=== PATIENT | female | born 1935 | race Caucasian/White ===

== ENCOUNTER 2024-10-10 18:23 | Emergency (ER) | payer OTHER, SELFPAY ==
[2024-10-10] VITALS (22 sets, daily range): BP systolic 153–216; BP diastolic 71–92; PULSE 52–77; RESP 8–34; TEMP 37.1; O2SAT 91–95; BMI 30.2
--- OUTSIDE RECORDS SUMMARY | 2024-10-10 18:25 | XMS_ITS | Clinical Summary ---
Author Organization [facility] Address [address] [place] [id number] Care Team Providers Care Cable Braider Name Role Phone Deysi Fuentes Ki Unavailable [phone] Ana Jones MD Primary Care Provider Allergies Active Allergy Reactions Criticality Noted Date Comments Lisinopril Angioedema 02/13/2013 Medications acetaminophen (TYLENOL EXTRA STRGTH) 500 mg tablet Take 500 mg by mouth. 5 Active Diabetic ShoeIndications: Diabetes mellitus without complication (HC) As directed. 1 Units 0 Active Lancing Device miscIndications: Diabetes mellitus without complication (HC) As directed. 1 Each 2 Active miscellaneous medical supply (Blood Pressure Cuff) miscIndications: HTN (hypertension) As directed. BP cuff for home use. Length of need 99 1 Each 2 Active Blood Pressure Monitor KitIndications:H TN (hypertension) As directed. BP cuff for home use. Length of need 99 1 Each 3 Active torsemide (DEMADEX) 20 mg tabletIndication s:CKD (chronic kidney disease) stage 4, GFR 15-29 ml/min (HC),Localized edema TAKE 1 TABLET DAILY 90 Tablet 3 3 Active torsemide (DEMADEX) 10 mg tabletIndication s:Localized edema due to fluid overload,Hyperka lemia Take 1 Tablet (10 mg) by mouth once daily. Take with 20mg tablet for total of 30mg per day 90 Tablet 3 3 Active carvediloL (Coreg) 6.25 mg tabletIndication s:HTN (hypertension) Take 1 Tablet (6.25 mg) by mouth two times daily with meals. 180 Tablet 3 3 Active calcitrioL (ROCALTROL) 0.25 mcg capsuleIndicatio ns:CKD (chronic kidney disease) stage 4, GFR 15-29 ml/min (HC) TAKE 1 CAPSULE BY MOUTH ONCE DAILY 90 Capsule 3 4 Active gabapentin (NEURONTIN) 100 mg capsuleIndicatio ns:Diabetic peripheral neuropathy (HC) TAKE 3 CAPSULES BY MOUTH ONCE DAILY SEPARATE FROM ANTACIDS 270 Capsule 3 4 Active sAXagliptin (ONGLYZA) 2.5 mg tabletIndication s:Diabetes mellitus without complication (HC) Take 1 Tablet (2.5 mg) by mouth once daily. 90 Tablet 3 4 Active blood sugar diagnostic (Accu-Chek Sylvia Plus test strp) stripIndications :Diabetes mellitus without complication (HC) TEST 1-2 times/day due to fluctuating blood sugars. 150 Each 3 4 Active lancets (Unilet GP Lancet)Indicatio ns:Diabetes mellitus without complication (HC) Dispense item covered by pt ins. 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 90 Tablet 3 4 Active losartan (COZAAR) 100 mg tabletIndication s:HTN (hypertension) TAKE 1 TABLET BY MOUTH ONCE DAILY 90 Tablet 5 Active glipiZIDE (GLUCOTROL) 5 mg tabletIndication s:Diabetes mellitus without complication (HC) TAKE 2 TABLETS BY MOUTH WITH BREAKFAST AND 1 TABLET BY MOUTH WITH DINNER 1/2 HOUR BEFORE MEALS 270 Tablet 5 Active Active Problems Problem Noted Date Diagnosed Date Chronic diastolic heart failure 09/13/2023 Chronic metabolic acidosis 09/13/2023 Acute pain of left shoulder 07/22/2023 Overview (02/27/2024): July 2023: Left shoulder subacromial bursa steroid injection, significant relief for 3-4 months. Feb 2024: Repeat Left shoulder subacromial bursa steroid injection. Hyperkalemia 03/01/2023 Type 2 diabetes mellitus with diabetic nephropat hy 03/01/2023 Basal cell carcinoma (BCC) of skin of nose 03/09 Diabetic peripheral neuropathy 09/07/2021 Secondary renal hyperparathyroidism 10/24/2018 CKD (chronic kidney disease) stage 5, GFR less than 15 ml/min 10/24/2018 MGUS (monoclonal gammopathy of unknown significa nce) 07/24/2018 Bilateral lower extremity edema 01/08/2018 Angioedema 08/12/2013 Meningioma 06/19/2013 Sensorineural hearing loss, bilateral 01/15/2013 HTN (hypertension) 08/12/2010 CAD (coronary artery disease) 08/12/2010 Overview (08/12/2010): Non-obstructive based on angiogram of 2004. Medical therapy recommended. Osteopenia 08/12/2010 Overview (08/12/2010): Last DEXA scan 02/23. 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 CKD (chronic kidney disease) stage 3, GFR 30-59 ml/min 08/12/2010 10/24/2018 Tobacco abuse, episodic 08/12/201001/17 Encounters Date Type Department Care Team Description 10/09/2024 Nurse Triage [facility] [address] [place] [address] Ana Jones MD Concerns (CHEST PAIN ) 10/02/2024 Refill [facility] [address] [place] [address] Ana Jones MD Refill Request (Simvastatin) 09/30/2024 10:15 AM CDT [place] [facility] [id number] [place] [address] Lab, [facility] 09/30/2024 Travel 09/12/2024 Telephone [facility] [address] [place] [address] Ana Jones MD Error-please disregard 08/15/2024 Refill [facility] [address] [place] [address] Cristhian Snow MD Refill Request (Calcitriol) 08/15/2024 Refill [facility] [address] [place] [address] Ana Jones MD Refill Request (Losartan, Glipizide) 08/14/2024 Refill [facility] [address] [place] [address] Cristhian Snow MD Refill Request (Gabapentin) 08/13/2024 10:00 AM ADMISSIONS ASSISTANT [place] [facility] [id number] [address] [address] Lab, [facility] 08/13/2024 Travel 07/14/2024 10:00 AM ADMISSIONS ASSISTANT [place] [facility] [id number] [address] [place] [address] Lab, [facility] 07/14/2024 Travel from Last 3 Months Immunizations Immunization Administration Dates Next Due COVID-19 vaccine ([employer] 30mcg/0.3mL) ELDA TORRES 08/21/2020,07/31/2020 Influenza, High-dose Inactivated 04/27/2017 Influenza, Inactivated AIIV4 (Age 65+ Years) Preserv Free 03/03/2020 Influenza, Inactivated IIV3 (Age 65+ Years) Preserv Free 05/07/2024 Pneumococcal Poly,23-Valent (Pneumovax) 08/02/19 10 Td (Age >=7 Years) 01/06/1997 Td, Preservative Free (age >= 7 Years) 7 02/04/2017 Family History Medical History Relation Name Comments Cancer-breast Maternal Aunt Relation Name Status Comments Father (Age 83) [place] Maternal Aunt Mother (Age 85) colon canc er Social History Tobacco Use Types Packs/Day Years Used Date Smoking Tobacco: Never Smokeless Tobacco: Never Tobacco Cessation:Counseling Given: Yes Alcohol Use Standard Drinks/Week Comments No 0 (1 standard drink = 0.6 oz pur e alcohol) PHQ-2 Answer Date Recorded PHQ-2 Score 0 08/17/2018 Social Connections Answer Date Recorded Do you often feel lonely or isolated from those around you? 0 10/12/2023 Financial Resource Strain Answer Date R ecorded Difficulty of Paying Living Expenses 3 10/12/2023 Difficulty of Paying Living Expenses Not on file 10/12/2023 Food Insecurity Answer Date Recorded Do you worry your food will run out before you are able to buy more? 1 10/12/2023 Transportation Needs Answer Date Record ed Does lack of transportation keep you from medica l appointments? 1 10/12/2023 Does lack of transportation keep you from work, meetings or getting things that you need? 1 10/12/2023 Housing Stability Answer Date Recorded What is your housing situation today? 1 10/12/2023 Utilities Answer Date Recorded Do you have trouble paying f or utilities (for example, heat, electricity, water, phone)? 1 10/12/2023 Comments No Sex and Gender Information Value Date Recorded Sex Assigned at Not on file Legal Sex Female 5:25 AM ADMISSIONS ASSISTANT Gender Identity Not on file Sexual Orientation Not on file 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, dealership general manager Not on file N ot on file Not on file Obstetrics History Last Filed Vital Signs Vital Sign Reading Time Taken Comments Blood Pressure 150/76 05/07/2024 9:47 AM ADMISSIONS ASSISTANT Pulse 64 05/07/2024 9:47 AM ADMISSIONS ASSISTANT Temperature 36.7 C (98.1 F) 11/30/2020 3:53 PM CDT Respiratory Rate 16 03/15/2013 7:46 AM CDT Oxygen Saturation 96% 05/07/2024 9:47 AM ADMISSIONS ASSISTANT Inhaled Oxygen Concentration - - Weight 75.1 kg (165 lb 9.6 oz) 05/07/2024 9:47 A M ADMISSIONS ASSISTANT Height 156.2 cm (5' 1.5) 05/07/2024 9:47 AM ADMISSIONS ASSISTANT Body Mass Index 30.78 05/07/2024 9:47 AM ADMISSIONS ASSISTANT Plan of Treatment Health Maintenance Due Date Last Done Comments Tdap 1946 Zoster (shingles) series for age 50+ (1 of 2) 1987 Pneumococcal series for age 50+ (2 of 2 - PCV) 08/02/2010 08/02/2009 RSV vaccine for adults or (1 - 1-dose 75+ series) 2012 Tetanus booster 02/04/2017 02/04/2007, 01/06/1997 Depression screening for age 12+ 02/08/2019 02/08/2018, 02/05/2018, 01/23/2017, Additional history exists Medicare Wellness for age 65+ 09/09/2021 09/08/2020 COVID-19 vaccine series ( season) 2024 05/02/2021, 08/21/2020, 07/31/2020 BMI (ht and wt on same day) for age 18+ 05/07/2025 05/07/2024, 07/20/2023, 03/01/2023, Additional history exists DEXA/DXA scan for age 65+ Completed 2007 (Completed outside of [facility]), 02/27/2008 Influenza Vaccine Completed 05/07/2024, , 04/27/2017 Procedures Procedure Name Priority Date/Time Associated Diagnosis Comments RENAL FUNCTION PANEL Routine 08/13/2024 10:02 AM ADMISSIONS ASSISTANT CKD (chronic kidney disease) stage 5, GFR less than 15 ml/min (HC) HEMOGLOBIN Routine 08/13/2024 10:01 AM ADMISSIONS ASSISTANT Chronic kidney disease, stage V (HC) XR DXA BONE DENSITY 2 SITES AXIAL Routine 02/27/2008 10:35 AM CDT Special Screening for Osteoporosis from Last 3 Months or Most Recently Relevant to Health Maintenance Results * (ABNORMAL) RENAL FUNCTION PANEL (08/13/2024 10:02 AM ADMISSIONS ASSISTANT) GLUCOSE 157(H) 65 - 99 mg/dL [facility] Comment: Fasting reference interval For someone without known diabetes, a glucose value >125 mg/dL indicates that they may have diabetes and this should be confirmed with a follow-up test. UREA NITROGEN (BUN) 82(H) 7 - 25 mg/dL [facility] CREATININE 4.71(H) 0.60 - 0.95 mg/dL [facility] EGFR 8(L) > OR = 60 mL/min/1.7 3m2 [facility] BUN/CREATININE RATIO 17 6 - 22 (calc) [facility] SODIUM 136 135 - 146 mmol/L [facility] POTASSIUM 5.2 3.5 - 5.3 mmol/L [facility] CHLORIDE 105 98 - 110 mmol/L [facility] CARBON DIOXIDE 21 20 - 32 mmol/L [facility] CALCIUM 9.8 8.6 - 10.4 mg/dL [facility] PHOSPHATE ( PHOSPHORUS) 6.7(H) 2.1 - 4.3 mg/dL [facility] ALBUMIN 3.8 3.6 - 5.1 g/dL [facility] Blood BLOOD SPECIMEN / Unknown 08/13/2024 10:02 AM ADMISSIONS ASSISTANT 08/13/2024 10:02 AM ADMISSIONS ASSISTANT us Cristhian Snow MD CHEMISTRY Final R esult [facility] [address] [place] [address], [facility] [address] [place] [address] * (ABNORMAL) HEMOGLOBIN (08/13/2024 10:01 AM ADMISSIONS ASSISTANT) HEMOGLOBIN 9.9(L) 11.7 - 15.5 g/dL [facility] Blood BLOOD SPECIMEN / Unknown 08/13/2024 10:01 AM ADMISSIONS ASSISTANT 08/13/2024 10:01 AM ADMISSIONS ASSISTANT Ana Jones MD HEMATOLOGY Final R esult [facility] [address] [place] [address], [facility] [address] [place] [address] * XR DEXA BONE DENSITY 2 SITES (02/27/2008 10:35 AM CDT) Anatomical Region Laterality Modality Spine, HIPS, HIPL, HIPR Other 02/27/2008 10:3 5 AM CDT Narrative 03/03/2008 2:18 PM CDT Please see scanned document for results of this study. Procedure Note Jessica Brandt PA - 03/10/2008 Please see scanned document for results of this study. Katie Conrad DO DEXA Final Resu lt from Last 3 Months or Most Recently Relevant to Health Maintenance Insurance MEDICARE PART A HB ONLY MEDICARE PART B HB ONLY [facility] MR Advance Directives * Full Code (Latest Code Status on File) Date Activated Date Inactivated Comments 03/15/2013 1:09 AM 03/15/2013 1:36 PM Care Teams Cable Braider Relationship Specialty Start Date End Date Ana Jones MD [address] [place] [address] PCP - General Family Practice 09/14/17 Deysi Fuentes AuD Audiology 01/15/13
--- OUTSIDE RECORDS SUMMARY | 2024-10-10 18:25 | XMS_ITS | Clinical Summary ---
Author Organization [facility] Address [address] [address] Phone Care Team Providers Care Casting Operator Name Role Phone Elsewhere, Pcp Primary Care Provider Unavailabl e Allergies No known active allergies Medications isosorbide dinitrate (ISORDIL) 10 MG tablet Take 10 mg by mouth three times a day. Active simvastatin (ZOCOR) 40 MG tablet Take 40 mg by mouth with supper. Active metFORMIN (GLUCOPHAGE) 1000 MG tablet Take 1,000 mg by mouth two times a day with meals. Take with food. Active metoprolol tartrate (LOPRESSOR) 50 MG tablet Take 50 mg by mouth two times a day. Active EPINEPHrine, auto-injector, 0.3 MG/0.3ML injection Inject 0.3 mL into the muscle one time as needed for Anaphylaxis for 1 dose. 2 Each 0 3 Active diphenhydrAMINE (BENADRYL) 25 MG capsule Take 2 Caps by mouth every six hours as needed for Other (Swelling). 24 Cap 0 3 Active Surgical History Surgery Date Site/Laterality Comments BACK SURGERY Medical History Medical History Date Comments Type 2 diabetes mellitus (HCC) Essential hypertension, benign Dyslipidemia Social History Tobacco Use Types Packs/Day Years Used Date Smoking Tobacco: Former Alcohol Use Standard Drinks/Week Comments Yes 0 (1 standard drink = 0.6 oz pur e alcohol) Comments Unknown Sex and Gender Information Value Date Recorded Sex Assigned at Not on file Legal Sex Female 8:44 AM CDT Gender Identity Not on file Sexual Orientation Not on file Obstetrics History Last Filed Vital Signs Vital Sign Reading Time Taken Comments Blood Pressure 144/80 02/11/2013 12:10 PM CDT Pulse 70 02/11/2013 12:10 PM CDT Temperature 36.9 C (98.4 F) 02/11/2013 8:51 AM CDT Respiratory Rate 20 02/11/2013 12:10 PM CDT Oxygen Saturation 95% 02/11/2013 12:10 PM CDT Inhaled Oxygen Concentration - - Weight 73.5 kg (162 lb) 02/11/2013 8:51 AM CDT Height 160 cm (5' 3) 02/11/2013 8:51 AM CDT Body Mass Index 28.7 02/11/2013 8:51 AM CDT Plan of Treatment Health Maintenance Due Date Last Done Comments PERTUSSIS (Standing Order) 1954 TETANUS (Standing Order) 1954 Pneumococcal Vaccine: 50+ yr s (Standing Order) (1 of 1 - PCV) 1987 Shingrix (Zoster recombinant ) vaccine (Standing Order) (1 of 2) 1987 DXA,FEMALES AGE 65 OR GREATER 2002 RSV Vaccination (60+ yrs) (Abrysvo/Arexvy) (1 - 1-dose 75+ series) 2012 COVID-19 Vaccine (2023-2 5 season) 2024 08/21/2020, 07/31/2020 Influenza Vaccine Seasonal (Standing Order) (#1) 2024 HPV Vaccine (Standing Order) Aged Out No longer eligible based on patient's age to complete this topic Hepatitis B Vaccine (Standin g Order) Aged Out No longer eligible b ased on patient's age to complete this topic Insurance [employer] [place] [id number] MEDICARE COST PART A&B Care Teams Casting Operator Relationship Specialty Start Date End Date Elsewhere, Pcp PCP - General 02/11/13
--- NOTE | 2024-10-10 19:07 | CRLHL7_ITS ---
For Patients: As a result of the Cures Act, medical imaging exams and procedure reports are released immediately into your electronic medical record. You may view this report before your referring provider. If you have questions, please contact your health care provider. INDICATION: Chest pain TECHNIQUE: Chest radiograph 2 views COMPARISON: 08/01/2016 FINDINGS: Mediastinum: There is a new right paratracheal density causing leftward deviation of the trachea which may be due to a goiter. Mild cardiomegaly is noted. Lung: Linear densities are present in the mid left lung and both lung bases which may be due to atelectasis and/or linear scarring. No sign of pleural effusion seen. No pneumothorax is identified. Bone and Soft tissue: A right reverse shoulder arthroplasty is partially visualized. IMPRESSIONS: 1. Linear densities are present in the mid left lung and both lung bases which may be due to atelectasis and/or linear scarring. 2. Mild cardiomegaly is noted. 3. There is a new right paratracheal density causing leftward deviation of the trachea which may be due to a goiter. Correlation with physical exam is recommended. Dictated by Sid Lozano MD @ 10/10/2024 7:46:37 PM Dictated by: Sid Lozano MD @ 10/10/2024 19:46:40 (Electronically Signed)
[2024-10-10 19:25] LABS: Basophils Absolute Auto 0.06 K/uL (0.00-0.30); Basophils Percent Auto 0.8 % (0.0-3.0); Eosinophils Absolute Auto 0.44 K/uL (0.00-0.50); Eosinophils Percent Auto 5.6 % (0.0-7.0); Hemoglobin* 10.2 gm/dL (12.0-16.0); Immature Granulocytes Abs Auto 0.12 K/uL (0.00-0.30); Immature Granulocytes Pct Auto 1.5 %; Lymphocytes Percent Auto 10.9 % (20-44); Mean Corpuscular HGB Conc 32 gm/dL (32-36); Mean Corpuscular Hemoglobin 29 pg (26-34); Mean Corpuscular Volume 92 fL (80-100); Neutrophils Percent Auto 73.2 % (42.0-72.0); Platelet Count* 275 K/uL (140-440); RDW Coefficient of Variation % 13.8 % (11.5-15.5); Red Blood Count 3.49 m/uL (4.00-5.20); White Blood Count* 7.87 K/uL (4.50-11.00)
[2024-10-10 19:27] LABS: Slide Review Reflex No; Troponin, Point-of-Care* 0.02 ng/ml (0.01-0.04)
--- NOTE | 2024-10-10 19:29 | ED.CHESTPAIN ---
HPI - Chest Pain General Date Seen: 10/10/24 Chief Complaint: Chest Pain Stated Complaint: Chest pain, hard to breath when walking Time Seen by Provider: 10/10/24 18:44 Source: patient Mode of arrival: ambulatory Limitations: no limitations History of Present Illness HPI narrative: Patient is an 89-year-old female with a history of nodular basal cell carcinoma, end-stage renal disease not on dialysis presenting to the emergency department for chest pain. She states the past week whenever she will get up and walk around she will get chest pain. Describes as a dull ache in her mid lower chest. Does seem to radiate sometimes to her left upper chest. Symptoms occur just from walking to her kitchen and back. They typically go away when she sits down. They occur does but every time she gets up and moves around. She thinks she gets some mild relief with rolaids but cannot say for certain could she always also sits down after she takes the rolaids. Has never had symptoms like this before she states. Does get some associated shortness of breath with it. Does not get lightheaded or dizzy. States she was checking blood pressure at home a couple times since typically in the 150s systolic over 80s diastolic. Does states she is very anxious right now because she is concerned it could be her heart. Does states she has some very mild pain right now does not feel like the previous pain. She thinks it is because she is anxious. She does have end-stage renal disease and was offered dialysis a couple years ago but declined as she preferred quality of life. No other concerns noted. Related Data Previous Rx's ?Medication ?Instructions ?Recorded isosorbide mononitrate 60 mg 60 mg PO DAILY #30 tabs 10/10/24 tablet,extended release 24 hr nitroglycerin 0.4 mg sublingual 0.4 mg sublingual Q5-15M PRN chest 10/10/24 tablet pain #30 tabs Allergies Allergy/AdvReac Type Severity Reaction Status Date / Time lisinopril Allergy Severe Mouth, Verified 10/10/24 18:37 throat swollen Review of Systems Status of ROS Reports: 10 or more systems reviewed and unremarkable except as noted in History and below [facility] Medical History Nodular basal cell carcinoma ?C44.91 - Basal cell carcinoma of skin, unspecified (ICD-10) Encounter for preoperative screening laboratory testing for severe acute respiratory syndrome coronavirus 2 (SARS-CoV-2) ?Z01.812 - Encounter for preprocedural laboratory examination (ICD-10) ?Z20.822 - Contact with and (suspected) exposure to covid-19 (ICD-10) Social History Smoking Status: Never smoker service: No Exam Narrative Exam Narrative: Const: Well-nourished, Well-developed, in no distress Eyes: PERRL, no conjunctival injection, and symmetrical lids HENT: Atraumatic external nose and ears. Moist mucous membranes. Neck: Symmetric, trachea midline, No thyromegaly. CVS: RRR, No murmurs or gallops. Peripheral pulses 2+ and equal in all extremities RESP: Unlabored respiratory effort. Clear to auscultation bilaterally. GI: Nontender/Nondistended, No rebound or guarding. MSK:Extremities w/o deformity, Normal Active ROM Skin: Warm, Dry. No rashes or lesions. Neuro: Normal Muscle tone, No focal neurological deficits. Psych: Awake, Alert, & Oriented x3. Appropriate mood and affect. Const Vital Signs, click to edit/add: Vital Signs - 24 hr 10/10/24 18:37 10/10/24 18:55 10/10/24 18:59 Temperature 98.8 F Pulse Rate Pulse Rate [Pulse Oximeter] 77 Respiratory Rate 18 8 L 17 Blood Pressure 216/87 H Blood Pressure [Right Upper Arm] 211/77 H Pulse Oximetry 95 Oxygen Delivery Method Room Air 10/10/24 19:00 10/10/24 19:08 10/10/24 19:15 Temperature Pulse Rate Pulse Rate [Pulse Oximeter] Respiratory Rate 18 10 L 13 Blood Pressure 200/84 H Blood Pressure [Right Upper Arm] Pulse Oximetry Oxygen Delivery Method 10/10/24 19:30 10/10/24 19:33 10/10/24 19:38 Temperature Pulse Rate Pulse Rate [Pulse Oximeter] Respiratory Rate 34 H 13 11 L Blood Pressure 208/87 H 170/77 H Blood Pressure [Right Upper Arm] Pulse Oximetry Oxygen Delivery Method 10/10/24 19:45 10/10/24 19:47 10/10/24 20:00 Temperature Pulse Rate 58 L 52 L 60 Pulse Rate [Pulse Oximeter] Respiratory Rate 16 11 L 14 Blood Pressure 169/74 H Blood Pressure [Right Upper Arm] Pulse Oximetry 93 94 95 Oxygen Delivery Method 10/10/24 20:02 10/10/24 20:15 10/10/24 20:30 Temperature Pulse Rate 56 L 59 L 57 L Pulse Rate [Pulse Oximeter] Respiratory Rate 12 12 11 L Blood Pressure 168/73 H Blood Pressure [Right Upper Arm] Pulse Oximetry 91 93 93 Oxygen Delivery Method 10/10/24 20:32 10/10/24 20:45 10/10/24 20:47 Temperature Pulse Rate 57 L 58 L 64 Pulse Rate [Pulse Oximeter] Respiratory Rate 12 13 17 Blood Pressure 153/71 H 175/85 H Blood Pressure [Right Upper Arm] Pulse Oximetry 93 94 93 Oxygen Delivery Method 10/10/24 21:00 10/10/24 21:02 10/10/24 21:15 Temperature Pulse Rate 60 60 63 Pulse Rate [Pulse Oximeter] Respiratory Rate 8 L 16 17 Blood Pressure 181/92 H Blood Pressure [Right Upper Arm] Pulse Oximetry 93 93 92 Oxygen Delivery Method Course Vital Signs Vital signs: Initial Vital Signs Temperature 98.8 F 10/10/24 18:37 Temperature Source Temporal Artery Scan 10/10/24 18:37 Pulse Rate 77 10/10/24 18:37 Pulse Rhythm Regular 10/10/24 18:37 Respiratory Rate 18 10/10/24 18:37 Blood Pressure 211/77 H 10/10/24 18:37 Blood Pressure Mean 121 H 10/10/24 18:37 Blood Pressure Position Sitting 10/10/24 18:37 Pulse Oximetry 95 10/10/24 18:37 Oxygen Delivery Method Room Air 10/10/24 18:37 Vital Signs Temperature 98.8 F 10/10/24 18:37 Pulse Rate 77 10/10/24 18:37 Respiratory Rate 18 10/10/24 18:37 Blood Pressure 211/77 H 10/10/24 18:37 Pulse Oximetry 95 10/10/24 18:37 Oxygen Delivery Method Room Air 10/10/24 18:37 Temperature 98.8 F 10/10/24 18:37 Pulse Rate 63 10/10/24 21:15 Respiratory Rate 17 10/10/24 21:15 Blood Pressure 181/92 H 10/10/24 21:02 Pulse Oximetry 92 10/10/24 21:15 Oxygen Delivery Method Room Air 10/10/24 19:23 Medications Administered Medications: Discontinued Medications Generic Name Dose Route Start Last Admin Trade Name Evan PRN Reason Stop Dose Admin Isosorbide Mononitrate 60 mg 10/10/24 21:19 10/10/24 21:20 Isosorbide Mononitrate Er 30 Mg Tab PO 10/10/24 21:20 60 mg ONCE ONE Administration Labetalol HCl 20 mg 10/10/24 19:08 10/10/24 19:33 Labetalol Hcl 5 Mg/Ml Inj IVP 10/10/24 19:09 20 mg ONCE ONE Administration MDM - Chest Pain MDM Narrative Medical decision making narrative: Patient is an 89-year-old female presenting for chest pain. The differential diagnosis of chest pain is broad and includes common etiologies such as musculoskeletal strain, GERD, pneumonia, etc. More serious etiologies considered include PE, coronary artery disease, pneumothorax, aortic dissection, aortic aneurysm. My concern for PE, aortic dissection, aortic aneurysm is relatively low as pain seems to be only associated with moving. This does seem likely to be some type of ACS so I will order a EKG and troponin. Also order chest x-ray look for signs of pneumonia or pneumothorax. There is some thought this could be related to GERD but will have to rule out all other issues 1st. Will also order lipase for possible pancreatitis. She is hypertensive but is not currently having much chest pain. I will treat her with labetalol to bring her blood pressure down. Will also order a CBC, viral swabs, magnesium, BNP, BMP. Lab work shows a creatinine of 4.2 which is baseline. She also has a normal troponins and normal EKG. While suction negative. CBC and rest of her BMP showed no concerning findings. BNP is 2270. Chest x-ray shows no acute concerning abnormalities. She does have this apparent goiter in her neck causing some mass effect on the trachea but there is no stridor or signs of airway compromise. No goiter noted on physical exam. She can follow up outpatient for this. Due to my concern for stable angina I did speak to [facility]. Considering the patient is a end-stage renal disease not on dialysis patient Dr. Baptiste does not think she is a candidate for cardiac catheterization. Due that he does not recommend stress test at this time and instead recommends Imdur 60 mg daily and sublingual nitro. He states his symptoms persist she will need to speak to her tugboat operator about possible dialysis. I spoke to patient about all these findings in her and her daughter are agreeable to this plan. Patient was able to ambulate around the department without issue. Lab Data Labs: Lab Results 10/10/24 Range/Units 19:05 WBC 7.87 (4.50-11.00) K/uL RBC 3.49 L (4.00-5.20) m/uL Hgb 10.2 L (12.0-16.0) gm/dL Hct 32.0 L (33.0-51.0) % MCV 92 (80-100) fL MCH 29 (26-34) pg MCHC 32 (32-36) gm/dL RDW Coeff of Yajaira 13.8 (11.5-15.5) % Plt Count 275 (140-440) K/uL Neut % (Auto) 73.2 H (42.0-72.0) % Lymph % (Auto) 10.9 L (20-44) % [place] % (Auto) 8.0 (0.0-11.0) % Eos % (Auto) 5.6 (0.0-7.0) % Baso % (Auto) 0.8 (0.0-3.0) % Neut # (Auto) 5.80 (1.7-7.0) K/uL Lymph # (Auto) 0.90 (0.90-2.90) K/uL [place] # (Auto) 0.60 (0.00-0.90) K/UL Eos # (Auto) 0.44 (0.00-0.50) K/uL Baso # (Auto) 0.06 (0.00-0.30) K/uL Abs Immat Gran (auto) 0.12 (0.00-0.30) K/uL Imm/Tot Granulo (auto) 1.5 % Sodium 136 (135-149) mmol/L Potassium 4.4 (3.6-5.1) mmol/L Chloride 105 (96-114) mmol/L Carbon Dioxide 21 (20-32) mmol/L Anion Gap 10 (7-15) mEq/L BUN 57 H (7-30) mg/dL Creatinine 4.2 H (0.5-1.5) mg/dL Estimated Creat Clear 7.46 Estimated GFR 10 ml/min Glucose 159 H (60-115) mg/dL Calcium 10.2 (8.4-10.6) mg/dL Magnesium 2.0 (1.5-2.6) mg/dL Troponin I 0.03 (0.01-0.04) ng/mL NT-Pro-B Natriuret Pep 2270 pg/mL SARS-CoV-2 (PCR) Negative SARS-CoV-2 (Negative) Influenza Type A (PCR) Negative PCR FLU A (Negative) Influenza Type B (PCR) Negative PCR FLU B (Negative) RSV (PCR) Negative PCR RSV (Negative) POC Troponin I 0.02 (0.01-0.04) ng/ml Imaging Data Chest x-ray: Attestation: I have reviewed the pertinent imaging results. Radiologist's impression: 1. Linear densities are present in the mid left lung and both lung bases which may be due to atelectasis and/or linear scarring. 2. Mild cardiomegaly is noted. 3. There is a new right paratracheal density causing leftward deviation of the trachea which may be due to a goiter. Correlation with physical exam is recommended. Dictated by Sid Lozano MD @ 10/10/2024 7:46:37 PM ECG Data Attestation: I personally reviewed and interpreted this ECG as follows: Prior ECG tracings: not available for review Interpretation: Normal sinus rhythm with a wrist anyone beats per minute, right bundle branch block, normal intervals, normal axis, no ST or T-wave abnormalities. Discharge Plan Discharge Clinical Impression: Stable angina Patient Disposition: Home, Self-Care Condition: Stable Instructions: Angina (ED) Additional Instructions: I believe her symptoms are from stable angina but we cannot say for certain without a stress test and cardiac catheterization. Considering her end-stage renal disease that she is not doing dialysis for Cardiology states she is not a candidate for cardiac catheterization. They do recommend she starts taking Imdur 60 mg daily and sublingual nitro as needed for chest pain. If The chest pain persists she will need to have further follow-up. I gave one-month prescription of imdur. I recommend primary care follow-up for further prescription. Speak to them also about your possible goiter. Prescriptions: New isosorbide mononitrate 60 mg tablet extended release 24 hr 60 mg PO DAILY Qty: 30 0RF nitroglycerin 0.4 mg tablet, sublingual 0.4 mg sublingual Q5-15M PRN (Reason: chest pain) Qty: 30 0RF Rx Instructions: do not exceed 3 doses per episode Follow Up/Referrals: Ana Jones MD [Primary Care Provider] - Stand Alone Forms: [employer] Info Instructions
[2024-10-10] MEDS: LABETALOL HCL 5 MG/ML inj 20 MG IVP (19:33)
[2024-10-10 19:34] LABS: Chloride* 105 mmol/L (96-114); Potassium* 4.4 mmol/L (3.6-5.1); Sodium* 136 mmol/L (135-149)
--- OUTSIDE RECORDS SUMMARY | 2024-10-10 19:34 | XMS_ITS | Clinical Summary ---
Author Organization [facility] Address [address] [address] Phone Care Team Providers Care Life Trainer Name Role Phone Elsewhere, Pcp Primary Care [...] patient's age to complete this topic Insurance [employer] [place] [id number] MEDICARE COST PART A&B Care Teams Life Trainer Relationship Specialty Start Date End Date Elsewhere, Pcp PCP - General 02/11/13
--- OUTSIDE RECORDS SUMMARY | 2024-10-10 19:34 | XMS_ITS | Clinical Summary ---
Author Organization [facility] Address [address] [place] [id number] Care Team Providers Care Stripping Shovel Oiler Name Role Phone Deysi Fuentes Ki Unavailable [phone] Ana Jones MD Primary Care Provider [...] Department Care Team Description 10/09/2024 Nurse Triage [facility] [address] [place] [address] Ana Jones MD Concerns (CHEST PAIN ) 10/02/2024 Refill [facility] [address] [place] [address] Ana Jones MD Refill Request (Simvastatin) 09/30/2024 10:15 AM CDT Orders Only [facility] [address] [place] [address] Lab, Farm Lab 09/30/2024 Travel 09/12/2024 Telephone [facility] [address] [place] [address] Ana Jones MD Error-please disregard 08/15/2024 Refill [facility] [address] [place] [address] Cristhian Snow MD Refill Request (Calcitriol) 08/15/2024 Refill [facility] [address] [place] [address] Ana Jones MD Refill Request (Losartan, Glipizide) 08/14/2024 Refill [facility] [address] [place] [address] Cristhian Snow MD Refill Request (Gabapentin) 08/13/2024 10:00 AM HYBRID CAR MECHANIC Orders Only [facility] [address] [address] Lab, Farm Lab 08/13/2024 Travel 07/14/2024 10:00 AM HYBRID CAR MECHANIC Orders Only [facility] [address] [place] [address] Lab, Farm Lab 07/14/2024 Travel from Last 3 Months Immunizations Immunization Administration Dates Next Due COVID-19 vaccine ([facility] 30mcg/0.3mL) ELDA TORRES 08/21/2020,07/31/2020 Influenza, High-dose Inactivated 04/27/2017 Influenza, Inactivated AIIV4 (Age 65+ Years) Preserv Free 03/03/2020 Influenza, Inactivated IIV3 (Age 65+ Years) Preserv Free 05/07/2024 Pneumococcal Poly,23-Valent (Pneumovax) 08/02/19 10 Td (Age >=7 Years) 01/06/1997 Td, Preservative Free (age >= 7 Years) 7 02/04/2017 Family History Medical History Relation Name Comments Cancer-breast Maternal Aunt Relation Name Status Comments Father (Age 83) OR Maternal Aunt Mother (Age 85) colon canc [...] on file Legal Sex Female 5:25 AM HYBRID CAR MECHANIC Gender Identity Not on file Sexual Orientation Not on file 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, show host or hostess Not on file N ot on file Not on file Obstetrics History Last Filed Vital Signs Vital Sign Reading Time Taken Comments Blood Pressure 150/76 05/07/2024 9:47 AM HYBRID CAR MECHANIC Pulse 64 05/07/2024 9:47 AM HYBRID CAR MECHANIC Temperature 36.7 C (98.1 F) 11/30/2020 3:53 PM CDT Respiratory Rate 16 03/15/2013 7:46 AM CDT Oxygen Saturation 96% 05/07/2024 9:47 AM HYBRID CAR MECHANIC Inhaled Oxygen Concentration - - Weight 75.1 kg (165 lb 9.6 oz) 05/07/2024 9:47 A M HYBRID CAR MECHANIC Height 156.2 cm (5' 1.5) 05/07/2024 9:47 AM HYBRID CAR MECHANIC Body Mass Index 30.78 05/07/2024 9:47 AM HYBRID CAR MECHANIC Plan of Treatment Health Maintenance Due Date [...] age 65+ Completed 2007 (Completed outside of [facility]), 02/27/2008 Influenza Vaccine Completed 05/07/2024, , 04/27/2017 Procedures Procedure Name Priority Date/Time Associated Diagnosis Comments RENAL FUNCTION PANEL Routine 08/13/2024 10:02 AM HYBRID CAR MECHANIC CKD (chronic kidney disease) stage 5, GFR less than 15 ml/min (HC) HEMOGLOBIN Routine 08/13/2024 10:01 AM HYBRID CAR MECHANIC Chronic kidney disease, stage V (HC) XR DXA BONE DENSITY 2 SITES AXIAL Routine 02/27/2008 10:35 AM CDT Special Screening for Osteoporosis from Last 3 Months or Most Recently Relevant to Health Maintenance Results * (ABNORMAL) RENAL FUNCTION PANEL (08/13/2024 10:02 AM HYBRID CAR MECHANIC) GLUCOSE 157(H) 65 - 99 mg/dL [facility] Comment: Fasting reference interval For someone without known diabetes, a glucose value >125 mg/dL indicates that they may have diabetes and this should be confirmed with a follow-up test. UREA NITROGEN (BUN) 82(H) 7 - 25 mg/dL [facility] CREATININE 4.71(H) 0.60 - 0.95 mg/dL [facility] EGFR 8(L) > OR = 60 mL/min/1.7 3m2 [facility] BUN/CREATININE RATIO 17 6 - 22 (calc) [facility] SODIUM 136 135 - 146 mmol/L [facility] POTASSIUM 5.2 3.5 - 5.3 mmol/L [facility] CHLORIDE 105 98 - 110 mmol/L [facility] CARBON DIOXIDE 21 20 - 32 mmol/L [facility] CALCIUM 9.8 8.6 - 10.4 mg/dL [facility] PHOSPHATE ( PHOSPHORUS) 6.7(H) 2.1 - 4.3 mg/dL [facility] ALBUMIN 3.8 3.6 - 5.1 g/dL [facility] Blood BLOOD SPECIMEN / Unknown 08/13/2024 10:02 AM HYBRID CAR MECHANIC 08/13/2024 10:02 AM HYBRID CAR MECHANIC us Cristhian Snow MD CHEMISTRY Final R esult [employer] [facility] [address] [place] [address], [facility] [address] [place] [address] * (ABNORMAL) HEMOGLOBIN (08/13/2024 10:01 AM HYBRID CAR MECHANIC) HEMOGLOBIN 9.9(L) 11.7 - 15.5 g/dL [facility] Blood BLOOD SPECIMEN / Unknown 08/13/2024 10:01 AM HYBRID CAR MECHANIC 08/13/2024 10:01 AM HYBRID CAR MECHANIC Ana Jones MD HEMATOLOGY Final R esult [employer] [facility] [address] [place] [address], [facility] [address] [place] [address] * XR DEXA BONE DENSITY 2 SITES [...] HB ONLY MEDICARE PART B HB ONLY [facility] MR Advance Directives * Full Code (Latest Code Status on File) Date Activated Date Inactivated Comments 03/15/2013 1:09 AM 03/15/2013 1:36 PM Care Teams Stripping Shovel Oiler Relationship Specialty Start Date End Date Ana Jones MD [address] [place] [address] [place] [address] PCP - General Family Practice 09/14/17 Deysi Fuentes [facility] Audiology 01/15/13
[2024-10-10 19:37] LABS: Anion Gap 10 mEq/L (7-15); Blood Urea Nitrogen* 57 mg/dL (7-30); Calcium* 10.2 mg/dL (8.4-10.6); Carbon Dioxide* 21 mmol/L (20-32); Creatinine* 4.2 mg/dL (0.5-1.5); Est. Creatinine Clearance* 7.46; Estimated Glomerular Filt Rate 10 ml/min; Glucose* 159 mg/dL (60-115)
[2024-10-10 19:49] LABS: Troponin I* 0.03 ng/mL (0.01-0.04)
[2024-10-10 19:51] LABS: NT Pro B Type NatriureticPept* 2270 pg/mL
[2024-10-10 20:01] LABS: PCR FLU A Negative PCR FLU A (Negative); PCR FLU B Negative PCR FLU B (Negative); PCR RSV Negative PCR RSV (Negative); SARS PCR* Negative SARS-CoV-2 (Negative)
[2024-10-10] MEDS: ISOSORBIDE MONONITRATE ER 30 MG TAB 60 MG PO (21:20)
== END 2024-10-10 21:39 | disposition home or self-care (01) ==
PROVIDERS: Emergency Provider Student in an Organized Health Care Education/Training Program; PCP Family Medicine
DX: I20.9 Angina pectoris, unspecified (principal); R07.1 Chest pain on breathing
CPT/HCPCS: 36415; 71046; 80048; 83735; 83880; 84484; 85025; 87631; 93005; 99284; 99285; A9270

== ENCOUNTER 2025-03-22 21:27 | Outpatient (CLI) | payer MEDICARE, SELFPAY | END 2025-03-22 21:28 | disposition home or self-care (01) | LOC: AMB 03-24 16:41 | PROVIDERS: PCP Family Medicine; Visit Provider Emergency Medicine Emergency Medical Services | DX: R41.82 Altered mental status, unspecified (principal); R42 Dizziness and giddiness | CPT/HCPCS: A0425; A0427 ==

== ENCOUNTER 2025-03-22 21:48 | Emergency (ER) | payer MEDICARE, SELFPAY ==
[2025-03-22 21:54] VITALS: BP 173/85; PULSE 71; RESP 18; TEMP 36.6; O2SAT 93; BMI 27.5
--- NOTE | 2025-03-22 22:04 | ED_ITS ---
HPI - Altered Mental Status General Chief Complaint: Altered Mental Status Stated Complaint: Low blood sugar Time Seen by Provider: 03/22/25 21:55 History of Present Illness HPI narrative: This 89-year-old female comes in by ambulance because of altered mental status and decreased responses. She lives alone at home and has diabetes. She states that she takes medicine herself. I asked her how much and what she takes and she did have a good answer for this. Her glucose was at 47 and again in the low 50s. She has been taking some juice and upon arrival here is conversant but her speech seems a little bit slow. She states that her daughter knows what medicines she is on. Her daughter states that she is not on insulin. Related Data Previous Rx's ?Medication ?Instructions ?Recorded isosorbide mononitrate 60 mg 60 mg PO DAILY #30 tabs 0 10/10/24 tablet,extended release 24 hr nitroglycerin 0.4 mg sublingual 0.4 mg sublingual Q5-1 5M PRN chest 10/10/24 tablet pain #30 tabs Allergies Allergy/AdvReac Type Severity Reaction Status Date / Time lisinopril Allergy Severe Mouth, Verified 10/10/24 18:37 throat swollen Review of Systems Status of ROS: Reports: 10 or more systems reviewed and unremarkable except as noted in History and below Narrative: Constitutional: No fevers, no weight gain or loss. Eyes: No discharge. No vision changes. HENT: No congestion, no sore throat, no ear pain. Cardiovascular: No chest pain, no palpitations. Respiratory: No shortness of breath, no wheezes, no cough. Gastrointestinal: No abdominal pain, no vomiting, no diarrhea. Genitourinary: No dysuria, no hematuria. Musculoskeletal: Normal range of motion. Skin: No rashes, no pruritis. Neurological: No dizziness, weakness, sensory change, speech change. Endo/Heme/Allergies: No bruising or bleeding. No polydipsia. Pysch: no suicidality, no anxiety, no insomnia. All other systems reviewed and are negative. [facility] Medical History Nodular basal cell carcinoma ?C44.91 - Basal cell carcinoma of skin, unspecified (ICD-10) Encounter for preoperative screening laboratory testing for severe acute respiratory syndrome coronavirus 2 (SARS-CoV-2) ?Z01.812 - Encounter for preprocedural laboratory examination (ICD-10) ?Z20.822 - Contact with and (suspected) exposure to covid-19 (ICD-10) Social History Smoking Status: Never smoker Do you use any of these nicotine containing products: None How often do you have a drink containing alcohol: never How often do you have six or more drinks on one occasion: Never AUDIT-C Alcohol total score: 0 Non-prescribed substance use: denies use service: No Exam Narrative: Exam Narrative: Constitutional: Well-developed, well-nourished, no acute distress. HEENT: Normocephalic, atraumatic. Neck: Normal range of motion. Nontender. Supple. Heart: Regular. No murmurs. Normal rate. Intact distal pulses. Lungs: Clear to auscultation. No chest discomfort. No wheezes, rhonchi, or rales. Abdomen: Normal bowel sounds. Nontender. No rebound tenderness. Genitalia: Deferred. Back: No midline tenderness. Normal range of motion. Extremities: Normal range of motion. No injury. Skin: Intact. No rash. Warm. No erythema or pallor. Neurologic: No altered sensation. No weakness. Alert and oriented. Psychiatric: No suicidality. No anxiety or depression. No insomnia. Nursing notes and vitals signs are reviewed. Const: Vital Signs, click to edit/add: Vital Signs - 24 hr 03/22/25 21:54 Temperature 97.8 F Pulse Rate [Pulse Oximeter] 71 Respiratory Rate 18 Blood Pressure [Ri ght Upper Arm] 173/85 H Pulse Oximetry 93 Oxygen Delivery Me thod Room Air Course Vital Signs Vital signs: Initial Vital Signs Temperature 97.8 F 03/22/25 21:54 Temperature Source Temporal Artery Scan 03/22/25 21:54 Pulse Rate 71 03/22/25 21:54 Respiratory Rate 18 03/22/25 21:54 Blood Pressure 173/85 H 03/22/25 21:54 Blood Pressure Mean 114 H 03/22/25 21:54 Blood Pressure Position Sitting 03/22/25 21:54 Pulse Oximetry 93 03/22/25 21:54 Oxygen Delivery Method Room Air 03/22/25 21:54 Vital Signs Temperature 97.8 F 03/22/25 21:54 Pulse Rate 71 03/22/25 21:54 Respiratory Rate 18 03/22/25 21:54 Blood Pressure 173/85 H 03/22/25 21:54 Pulse Oximetry 93 03/22/25 21:54 Oxygen Delivery Method Room Air 03/22/25 21:54 Temperature 97.8 F 03/22/25 21:54 Pulse Rate 71 03/22/25 21:54 Respiratory Rate 18 03/22/25 21:54 Blood Pressure 173/85 H 03/22/25 21:54 Pulse Oximetry 93 03/22/25 21:54 Oxygen Delivery Method Room Air 03/22/25 21:54 Medications Administered Medications: Generic Name Dose Route Start Last Admin Trade Name Freq PRN Reason Stop Dose Admin Dextrose 250 mls @ 1,000 mls/hr 03/22/25 22:25 03/22/25 22:37 10 % Dextrose 500 Ml IV 03/22/25 22:39 Infused .Q15M ONE Infusion Discontinued Medications Generic Name Dose Route Start Last Admin Trade Name Freq PRN Reason Stop Dose Admin Dextrose 250 mls @ 1,000 mls/hr 03/22/25 22:04 03/22/25 22:37 10 % Dextrose 500 Ml IV 03/22/25 22:18 Infused .Q15M ONE Infusion MDM - Altered Mental Status MDM Narrative Medical decision making narrative: This 89-year-old female was noted by her daughter and son-in-law to have decreased mentation and mental status. She is a diabetic and takes oral glucose lowering medicines. She also has a history of renal insufficiency. She came in by ambulance and was noted to have a blood glucose of 47. The patient took some apple juice and started to improve with her mental function rather quickly. An IV was established where she then received dextrose and glucose was rechecked at 282. She is back to her normal mental status now. The patient has renal insufficiency and today her creatinine is more elevated at 5.8. Additionally BUN is at 89. She has not had a hypoglycemic event like this in the past so I think it is okay to stay on her same medicines but I cautioned her and family members regarding what to do if this recurs. She does have a follow-up appointment in a week or so to recheck her labs. Her GFR is decreased to 7. Her electrolytes however are all normal. She is not retaining fluid. Lab Data Labs: Lab Results 03/22/25 Range/Units 22:00 WBC 8.86 (4.50-11.00) K/uL RBC 3.52 L (4.00-5.20) m/uL Hgb 10.2 L (12.0-16.0) gm/dL Hct 32.0 L (33.0-51.0) % MCV 91 (80-100) fL MCH 29 (26-34) pg MCHC 32 (32-36) gm/dL RDW Coeff of Yajaira 15.9 H (11.5-15.5) % Plt Count 259 (140-440) K/uL Neut % (Auto) 69.5 (42.0-72.0) % Lymph % (Auto) 15.7 L (20-44) % [place] % (Auto) 8.2 (0.0-11.0) % Eos % (Auto) 5.2 (0.0-7.0) % Baso % (Auto) 0.6 (0.0-3.0) % Neut # (Auto) 6.16 (1.7-7.0) K/uL Lymph # (Auto) 1.40 (0.90-2.90) K/uL [place] # (Auto) 0.70 (0.00-0.90) K/UL Eos # (Auto) 0.46 (0.00-0.50) K/uL Baso # (Auto) 0.05 (0.00-0.30) K/uL Abs Immat Gran (auto) 0.07 (0.00-0.30) K/uL Imm/Tot Granulo (auto) 0.8 % Sodium 136 (135-149) mmol/L Potassium 4.7 (3.6-5.1) mmol/L Chloride 102 (96-114) mmol/L Carbon Dioxide 21 (20-32) mmol/L Anion Gap 13 (7-15) mEq/L BUN 89 H (7-30) mg/dL Creatinine 5.7 H (0.5-1.5) mg/dL Estimated Creat Clear 6.00 Estimated GFR 7 ml/min Glucose 49 L* (60-115) mg/dL Calcium 11.3 H (8.4-10.6) mg/dL Discharge Plan Discharge Clinical Impression: Hypoglycemia Patient Disposition: Home w/ Parent or Adult Condition: Improved Additional Instructions: Continue current plans. Follow up with primary MD to recheck labs and review medications. Okay to increase oral fluids. Kidney function is decreased and should be rechecked with your primary physician. Prescriptions: No Action isosorbide mononitrate 60 mg tablet extended release 24 hr 60 mg PO DAILY Qty: 30 0RF nitroglycerin 0.4 mg tablet, sublingual 0.4 mg sublingual Q5-15M PRN (Reason: chest pain) Qty: 30 0RF Rx Instructions: do not exceed 3 doses per episode Follow Up/Referrals: Ana Jones MD [Primary Care Provider, Family Practice] Stand Alone Forms: [employer] Info Instructions
[2025-03-22 22:10] LABS: Hematocrit* 32.0 % (33.0-51.0); Hemoglobin* 10.2 gm/dL (12.0-16.0); Immature Granulocytes Abs Auto 0.07 K/uL (0.00-0.30); Immature Granulocytes Pct Auto 0.8 %; Mean Corpuscular HGB Conc 32 gm/dL (32-36); Mean Corpuscular Hemoglobin 29 pg (26-34); Mean Corpuscular Volume 91 fL (80-100); RDW Coefficient of Variation % 15.9 % (11.5-15.5); Red Blood Count* 3.52 m/uL (4.00-5.20); White Blood Count* 8.86 K/uL (4.50-11.00)
[2025-03-22 22:13] LABS: Lymphocytes Absolute Auto 1.40 K/uL (0.90-2.90); Slide Review Reflex No
[2025-03-22] MEDS: 10 % DEXTROSE 500 ML 250 ML 1000 ML IV ×2 (22:15)
[2025-03-22 22:22] LABS: Chloride* 102 mmol/L (96-114); Potassium* 4.7 mmol/L (3.6-5.1); Sodium* 136 mmol/L (135-149)
[2025-03-22 22:25] LABS: Anion Gap 13 mEq/L (7-15); Blood Urea Nitrogen* 89 mg/dL (7-30); Calcium* 11.3 mg/dL (8.4-10.6); Carbon Dioxide* 21 mmol/L (20-32); Creatinine* 5.7 mg/dL (0.5-1.5); Est. Creatinine Clearance* 6.00; Estimated Glomerular Filt Rate 7 ml/min
--- OUTSIDE RECORDS SUMMARY | 2025-03-22 22:47 | XMS_ITS | Clinical Summary ---
Author Organization [facility] Address [address] [address] Phone Care Team Providers Care Concrete Batcher Name Role Phone Elsewhere, Pcp Primary Care [...] - 1-dose 75+ series) 2012 COVID-19 Vaccine (2024-2 6 season) 2025 08/21/2020, 07/31/2020 Influenza Vaccine Seasonal (Standing Order) (#1) 2025 HPV Vaccine (Standing Order) Aged Out No longer eligible based on patient's age to complete this topic Hepatitis B Vaccine (Standin g Order) Aged Out No longer eligible b ased on patient's age to complete this topic Insurance [employer] [place] [id number] MEDICARE COST PART A&B Care Teams Concrete Batcher Relationship Specialty Start Date End Date Elsewhere, Pcp PCP - General 02/11/13
--- OUTSIDE RECORDS SUMMARY | 2025-03-22 22:47 | XMS_ITS | Clinical Summary ---
Author Organization [facility] Address [address] [place] [id number] Care Team Providers Care Monument Installer Name Role Phone Deysi Fuentes Ki Unavailable [phone] Ana Jones MD Primary Care Provider [...] FROM ANTACIDS 270 Capsule 3 4 Active lancets (Unilet GP Lancet)Indicatio ns:Diabetes mellitus without complication (HC) Dispense item covered by pt ins. 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 90 Tablet 3 4 Active isosorbide mononitrate 60 mg extended release tablet 24 hour Take 1 Tablet by mouth once daily. 5 Active nitroglycerin 0.[address] 0.4 mg under the tongue every 5 minutes if needed. 5 Active glipiZIDE 5 mg tabletIndication s:Diabetes mellitus without complication (HC) TAKE 2 TABLETS BY MOUTH WITH BREAKFAST AND 1 TABLET BY MOUTH WITH DINNER 1/2 HOUR BEFORE MEALS 270 Tablet 3 5 Active losartan 100 mg tabletIndication s:HTN (hypertension) TAKE 1 TABLET BY MOUTH ONCE DAILY 90 Tablet 3 5 Active sAXagliptin 2.5 mg tabletIndication s:Diabetes mellitus without complication (HC) TAKE 1 TABLET BY MOUTH ONCE DAILY 90 Tablet 3 5 Active blood sugar diagnostic (Accu-Chek Sylvia Plus test strp) stripIndications :Diabetes mellitus without complication (HC) TEST 1-2 TIMES/DAY DUE TO FLUCTUATING BLOOD SUGARS. 200 Each 3 5 Active Active Problems Problem Noted Date [...] Encounters Date Type Department Care Team Description 02/26/2025 Travel from Last 3 Months Immunizations Immunization Administration Dates Next Due COVID-19 vaccine ([employer] NTech 30mcg/0.3mL) ELDA TORRES 08/21/2020,07/31/2020 Influenza, High-dose Inactivated 04/27/2017 Influenza, Inactivated AIIV4 (Age 65+ Years) Preserv Free 03/03/2020 Influenza, Inactivated IIV3 (Age 65+ Years) Preserv Free 05/07/2024 Pneumococcal Poly,23-Valent (Pneumovax) 08/02/19 10 Td (Age >=7 Years) 01/06/1997 Td, Preservative Free (age >= 7 Years) 7 02/04/2017 Family History Medical History Relation Name Comments Cancer-breast Maternal Aunt Relation Name Status Comments Father (Age 83) PR Maternal Aunt Mother (Age 85) colon canc [...] or isolated from those around you? 0 10/13/2024 Financial Resource Strain Answer Date R ecorded Difficulty of Paying Living Expenses 3 10/13/2024 Difficulty of Paying Living Expenses Not on file 10/13/2024 Food Insecurity Answer Date Recorded Do you worry your food will run out before you are able to buy more? 1 10/13/2024 Transportation Needs Answer Date Record ed Does lack of transportation keep you from medica l appointments? 1 10/13/2024 Does lack of transportation keep you from work, meetings or getting things that you need? 1 10/13/2024 Housing Stability Answer Date Recorded What is your housing situation today? 1 10/13/2024 Utilities Answer Date Recorded Do you have trouble paying f or utilities (for example, heat, electricity, water, phone)? 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 Gender Identity Not on file Sexual Orientation Not on file 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, scrap dealer Not on file N ot on file Not on file Obstetrics History Last Filed Vital Signs Vital Sign Reading Time Taken Comments Blood Pressure 156/70 10/13/2024 10:43 AM CDT Pulse 61 10/13/2024 10:43 AM CDT Temperature 36.7 C (98.1 F) 11/30/2020 3:53 PM CDT Respiratory Rate 16 03/15/2013 7:46 AM CDT Oxygen Saturation 96% 10/13/2024 10:43 AM CDT Inhaled Oxygen Concentration - - Weight 75.8 kg (167 lb 3.2 oz) 10/13/2024 10:43 AM CDT Height 156 cm (5' 1.42) 10/13/2024 10:43 AM CDT Body Mass Index 31.16 10/13/2024 10:43 AM CDT Plan of Treatment Health Maintenance Due Date Last Done Comments Zoster (shingles) series for age 50+ (1 of 2) 1987 Pneumococcal series for age 50+ (2 of 2 - PCV) 08/02/2010 08/02/2009 RSV vaccine for adults or (1 - 1-dose 75+ series) 2012 Tetanus booster 02/04/2017 02/04/2007, 01/06/1997 Depression screening for age 12+ 02/08/2019 02/08/2018, 02/05/2018, 01/23/2017, Additional history exists Medicare Wellness for age 65+ 09/09/2021 09/08/2020 COVID-19 vaccine series ( - 2024- season) 2025 05/02/2021, 08/21/2020, 07/31/2020 Influenza Vaccine (#1) 2025 , 03/03/2020, 04/27/2017 BMI (ht and wt on same day) for age 18+ 10/13/2025 10/13/2024, 05/07/2024, 07/20/2023, Additional history exists DEXA/DXA scan for age 65+ Completed 2007 (Completed outside of [facility]), 02/27/2008 Hepatitis B series for 19+ Aged Out N o longer eligible based on patient's age to complete this topic Procedures Procedure Name Priority Date/Time Associated Diagnosis Comments XR DXA BONE DENSITY 2 SITES AXIAL Routine 02/27/2008 10:35 AM CDT Special Screening for Osteoporosis from Last 3 Months or Most Recently Relevant to Health Maintenance Results * XR DEXA BONE DENSITY 2 SITES [...] Most Recently Relevant to Health [place] [address] MEDICARE PART A HB ONLY MEDICARE PART B HB ONLY [facility] MR Advance Directives * Full Code (Latest Code Status on File) Date Activated Date Inactivated Comments 03/15/2013 1:09 AM 03/15/2013 1:36 PM Care Teams Monument Installer Relationship Specialty Start Date End Date Ana Jones MD PCP - General Family Practice 09/14/17 Deysi Fuentes AuD Audiology 01/15/13
[2025-03-22 22:56] LABS: Glucose* 49 mg/dL (60-115)
[2025-03-22 23:54] VITALS: BP 151/78; PULSE 67; RESP 16; O2SAT 93
== END 2025-03-22 23:55 | disposition home or self-care (01) ==
PROVIDERS: Emergency Provider Emergency Medicine Emergency Medical Services; PCP Family Medicine
DX: E11.649 Type 2 diabetes mellitus with hypoglycemia without coma (principal); N28.9 Disorder of kidney and ureter, unspecified; Z79.84 Long term (current) use of oral hypoglycemic drugs
CPT/HCPCS: 36415; 80048; 85025; 99284